=== PATIENT | male | born 1975 | race Caucasian/White ===

== ENCOUNTER 2023-08-31 15:15 | Outpatient (CLI) | payer OTHER, SELFPAY | END 2023-08-31 15:16 | disposition home or self-care (01) | PROVIDERS: PCP Family Medicine; Visit Provider Family Medicine | DX: Z00.00 Encounter for general adult medical examination without abnormal findings (principal); Z11.3 Encounter for screening for infections with a predominantly sexual mode of transmission; Z13.6 Encounter for screening for cardiovascular disorders; Z13.1 Encounter for screening for diabetes mellitus; Z11.59 Encounter for screening for other viral diseases | CPT/HCPCS: 80053; 80061; 86803 ==

== ENCOUNTER 2024-11-03 13:14 | Outpatient (CLI) | payer OTHER, SELFPAY | END 2024-11-03 13:15 | disposition home or self-care (01) | PROVIDERS: PCP Family Medicine; Visit Provider Family Medicine | DX: Z13.6 Encounter for screening for cardiovascular disorders (principal); Z12.5 Encounter for screening for malignant neoplasm of prostate; Z13.1 Encounter for screening for diabetes mellitus | CPT/HCPCS: 80053; 80061; G0103 ==